=== PATIENT | male | born 1940 | race Caucasian/White ===

== ENCOUNTER → 2018-01-15 | Outpatient (CLI) | payer MEDICARE, OTHER | LOC: M WUC 13:05 | DX: J20.9 Acute bronchitis, unspecified (principal) | CPT/HCPCS: 71046 ==

== ENCOUNTER 2018-01-29 05:08 | Emergency (ER) | payer MEDICARE, OTHER ==
[2018-01-29 05:33] LABS: KETONE, URINE AUTO RFX NEGATIVE (NEGATIVE); LEUKOCYTE ESTERASE UR AUTO RFX NEGATIVE (NEGATIVE); MUCUS, URINE RFX SMALL (NEGATIVE); NITRITE, URINE AUTO RFX NEGATIVE (NEGATIVE); RBC, URINE AUTO RFX 4 /HPF (0-3); SPECIFIC GRAVITY UR AUTO RFX 1.013 (1.002-1.035); SQUAM EPITHELIAL CELL UR AURFX 0 /HPF (0-6); WBC, URINE AUTO RFX 1 /HPF (0-3)
[2018-01-29 06:23] LABS: BASO # 0.1 10^3/uL (0.0-0.2); BASO % 0.4 % (0.0-1.0); EOS # 0.1 10^3/uL (0.0-0.50); EOS % 1.1 % (0.0-3.0); HEMATOCRIT 40.7 % (42.0-52.0); HEMOGLOBIN 13.8 g/dl (13.5-17.5); IMMATURE GRANULOCYTE % 0.5 % (0-3.0); LYMPH # 2.3 10^3/uL (1.5-4.5); MEAN CORPUSCULAR HEMOGLOBIN 31.7 pg (27.0-33.0); MEAN CORPUSCULAR HGB CONC 33.9 g/dl (32.0-36.5); MEAN CORPUSCULAR VOLUME 93.3 fl (80.0-96.0); MONO # 1.2 10^3/uL (0.0-0.8); MONO % 8.9 % (0.0-5.0); NEUTROPHILS # 9.2 10^3/uL (1.8-7.7); NEUTROPHILS % 71.1 % (36.0-66.0); PLATELET COUNT, AUTOMATED 288 10^3/uL (150-450); RED BLOOD COUNT 4.36 10^6/uL (4.30-6.10); RED CELL DISTRIBUTION WIDTH 12.8 % (11.5-14.5)
[2018-01-29] MEDS: KETOROLAC 30 MG/ML VIAL (J1885) IV (06:24)
[2018-01-29 06:35] LABS: ANION GAP 9 MEQ/L (8-16); BLOOD UREA NITROGEN 15 MG/DL (7-18); CALCIUM LEVEL 8.2 MG/DL (8.8-10.2); CARBON DIOXIDE LEVEL 27 MEQ/L (21-32); CHLORIDE LEVEL 107 MEQ/L (98-107); CREATININE FOR GFR 0.97 MG/DL (0.70-1.30); GLOMERULAR FILTRATION RATE > 60.0 (>42); GLUCOSE, FASTING 99 MG/DL (70-100); POTASSIUM SERUM 3.9 MEQ/L (3.5-5.1); SODIUM LEVEL 143 MEQ/L (136-145)
== END 2018-01-29 08:48 | disposition home or self-care (01) ==
LOC: M ED 05:08
DX: K57.32 Diverticulitis of large intestine without perforation or abscess without bleeding (principal); K21.9 Gastro-esophageal reflux disease without esophagitis; K44.9 Diaphragmatic hernia without obstruction or gangrene; Z87.442 Personal history of urinary calculi; Z87.891 Personal history of nicotine dependence; Z79.899 Other long term (current) drug therapy
CPT/HCPCS: J1885

== ENCOUNTER → 2019-12-29 | Outpatient (CLI) | payer MEDICARE, OTHER ==
[~2019-12-29] MED LIST: CHOL4POW4 PO; CIPR-249 PO; DITR5TAB PO; FINA5TAB2 PO; FLAG500T PO; FLOM0.4C39 PO; NORC1TAB7 PO; PRED5TA PO; TAMS0.4C2 PO; TYLE650T35 PO; TYLETAB14 PO
== END ==
LOC: M LABSMTC 13:57
PROVIDERS: ATTEND Family Medicine
DX: Z03.818 Encounter for observation for suspected exposure to other biological agents ruled out (principal)

== ENCOUNTER 2020-04-09 05:33 | Emergency (ER) | payer MEDICARE, OTHER ==
[~2020-04-09] VITALS: Ht 172.7 cm; Wt 102.6 kg
[~2020-04-09 05:33] MED LIST changes: +ACET650T61 PO; -TYLE650T35 PO
[2020-04-09 07:00] LABS: ALBUMIN 3.9 GM/DL (3.2-5.2); ALT/SGPT 26 U/L (12-78); BILIRUBIN,DIRECT 0.2 MG/DL (0.0-0.2); BLOOD UREA NITROGEN 13 MG/DL (7-18); CARBON DIOXIDE LEVEL 26 MEQ/L (21-32); CHLORIDE LEVEL 107 MEQ/L (98-107); CREATININE FOR GFR 1.04 MG/DL (0.70-1.30); GLOMERULAR FILTRATION RATE > 60.0 (>42); GLUCOSE, FASTING 118 MG/DL (70-100); LIPASE 90 U/L (73-393); SODIUM LEVEL 140 MEQ/L (136-145); TOTAL PROTEIN 7.7 GM/DL (6.4-8.2)
[2020-04-09 07:08] LABS: BASO % 0.4 % (0.0-1.0); EOS # 0.1 10^3/uL (0.0-0.5); EOS % 1.3 % (0.0-3.0); HEMATOCRIT 42.8 % (42.0-52.0); HEMOGLOBIN 14.3 g/dl (13.5-17.5); LYMPH # 1.9 10^3/uL (1.5-5.0); MEAN CORPUSCULAR HEMOGLOBIN 31.3 pg (27.0-33.0); MEAN CORPUSCULAR HGB CONC 33.4 g/dl (32.0-36.5); MEAN CORPUSCULAR VOLUME 93.7 fl (80.0-96.0); MONO # 0.9 10^3/uL (0.0-0.8); NEUTROPHILS # 7.1 10^3/uL (1.5-8.5); PLATELET COUNT, AUTOMATED 284 10^3/uL (150-450); RED BLOOD COUNT 4.57 10^6/uL (4.30-6.10); WHITE BLOOD COUNT 10.2 10^3/uL (4.0-10.0)
--- NOTE | 2020-04-09 07:26 | REPVR ---
PROCEDURE INFORMATION: Exam: CT Abdomen And Pelvis Without Contrast Exam date and time: 04/09/2020 6:28 AM Age: 80 years old Clinical indication: Abdominal pain; Flank; Right; Additional info: R flank and suprapubic pain, distended abdomen TECHNIQUE: Imaging protocol: Computed tomography of the abdomen and pelvis without contrast. Radiation optimization: All CT scans at this facility use at least one of these dose optimization techniques: automated exposure control; mA and/or kV adjustment per patient size (includes targeted exams where dose is matched to clinical indication); or iterative reconstruction. COMPARISON: CT ABD PELVIS W/O CONTRAST 01/29/2018 6:24 AM FINDINGS: Detailed evaluation of the abdominal and pelvic viscera is somewhat limited in the absence of intravenous contrast. Lungs: Multiple nodules in the right lung base, contiguous with the diaphragm and pleura, including a 1.5 cm subpleural right lower lobe nodule, which was not visualized on the prior study. For patients at low risk (minimal or absent history of smoking and of other known risk factors), recommend CT Chest at 3-6 months, then consider CT Chest at 18-24 months. For patients at high risk (history of smoking or of other known risk factors), recommend CT Chest at 3-6 months, then CT Chest at 18-24 months. Mac[place] H, Fleischner Society, 2017. Heart: Pericardial calcification. Hiatal hernia. Liver: Fatty infiltration of the liver. Gallbladder and bile ducts: Status post cholecystectomy. Pancreas: No pancreatic mass or ductal dilatation. Spleen: No splenomegaly. Adrenals: Unremarkable adrenals. Kidneys and ureters: Lobulated morphology of the kidneys and bilateral renal cysts, including a 6.4 cm exophytic cyst arising from the lower pole of the left kidney, which previously measured 6 cm. Subcentimeter nonobstructing left renal calculi, the largest measuring 5 mm. Stomach and bowel: Small bowel dilatation without a transition zone. Colonic dilatation with prominent stool and diverticula. Sigmoid colon wall thickening and infiltration of pericolonic fat, consistent with diverticulitis in the appropriate clinical setting. Note evaluation is somewhat limited by beam hardening artifact in association with right hip arthroplasty. Appendix: Appendix not visualized. Intraperitoneal space: Small quantity of high attenuation free fluid in the pelvis. Vasculature: Vascular calcification. Normal caliber of the abdominal aorta. Lymph nodes: Subcentimeter lymph nodes. Bladder: Partial obscuration of the bladder by beam hardening artifact in association with right hip arthroplasty. Reproductive: Prostate calcification. Bones/joints: Right hip arthroplasty. Schmorl's nodes. Degenerative change and disc bulging. Coarsening of bony trabecula in the pelvis again demonstrated. Soft tissues: Laxity of the anterior abdominal wall musculature in the midline. Additional fat containing umbilical hernia. IMPRESSION: 1. Sigmoid colon wall thickening and infiltration of pericolonic fat, consistent with diverticulitis in the appropriate clinical setting. Note evaluation is somewhat limited by beam hardening artifact in association with right hip arthroplasty. 2. Small quantity of high attenuation free fluid in the pelvis. 3. Lobulated morphology of the kidneys and bilateral renal cysts. Subcentimeter nonobstructing left renal calculi, the largest measuring 5 mm. 4. Additional findings as described above. Electronically signed by: Ayan Mirza On 04/09/2020 07:26:53 AM
[2020-04-09] MEDS ORDERED: KETOROLAC 30 MG/ML 1ML VIAL IV ONE (07:45)
[2020-04-09 09:02] LABS: CK-MB VALUE MASS 2.7 NG/ML (<3.6); CPK CREATINE PHOSPHOKINASE 308 U/L (39-308); MB/CK RELATIVE INDEX 0.88 (< OR =4); TROPONIN I < 0.02 NG/ML (< 0.10)
[2020-04-09] MEDS ORDERED: AUGM875T28 PO (09:20)
[2020-04-09 09:22] VITALS: BP 160/90
--- NOTE | 2020-04-10 14:57 | ED PDOC ---
Post-Departure Follow-Up alexandra crouch faxed formal report of ct ab/p for fu Arelis Vargas MD Apr 10, 2020 14:57
--- NOTE | 2020-04-20 21:37 | ECGEPIP ---
[facility] - ED Test Date: 2020-04-09 Pat Name: ASH GONZALEZ Department: Room: - Gender: Male House Wirer: wanda : 1940 Requested By: FERMIN Hood PA-C Order Number: [id number] Reading MD: Mir Orourke Measurements Intervals [place] Rate: 89 P: 54 NC: 180 QRS: 0 QRSD: 93 T: 89 QT: 366 QTc: 446 Interpretive Statements SINUS RHYTHM NONSPECIFIC T-WAVE ABNORMALITY NO PREVIOUS SEE DOWNTIME SCANNED REPORT
== END 2020-04-09 09:31 | disposition home or self-care (01) ==
LOC: M ED 05:33
DX: K57.32 Diverticulitis of large intestine without perforation or abscess without bleeding (principal); N20.0 Calculus of kidney; R03.0 Elevated blood-pressure reading, without diagnosis of hypertension; N28.1 Cyst of kidney, acquired; K21.9 Gastro-esophageal reflux disease without esophagitis; N40.0 Benign prostatic hyperplasia without lower urinary tract symptoms; R13.10 Dysphagia, unspecified; Z87.19 Personal history of other diseases of the digestive system; Z87.442 Personal history of urinary calculi; Z79.899 Other long term (current) drug therapy
CPT/HCPCS: 74176; 80048; 80076; 81001; 82550; 82553; 83690; 84484; 85025; 93005; 96374; 99284; J1885

== ENCOUNTER → 2020-04-10 | Outpatient (CLI) | payer MEDICARE, OTHER ==
[~2020-04-10] MED LIST changes: +AUGM875T28 PO
== END ==
LOC: M LABSMTC 09:40
PROVIDERS: ATTEND Anesthesiology
DX: Z01.812 Encounter for preprocedural laboratory examination (principal); Z20.828 Contact with and (suspected) exposure to other viral communicable diseases
CPT/HCPCS: C9803; U0003

== ENCOUNTER 2020-04-15 11:01 | Day surgery (SDC) | payer MEDICARE, OTHER ==
[~2020-04-15] VITALS: Ht 172.7 cm; Wt 101.2 kg
[~2020-04-15 11:01] MED LIST changes: +NS 1,000 ML IV ONE
[2020-04-15] MEDS ORDERED: fentaNYL 100 MCG/2 ML INJECTION (J3010) As Ordered ONE (12:07)
[2020-04-15] MEDS ORDERED: LIDOCAINE 2% 100MG/5ML SDV (FOR ANES.) As Ordered ONE (12:07)
[2020-04-15] MEDS ORDERED: propofoL 500 MG/50 ML VIAL As Ordered ONE (12:07)
--- NOTE | 2020-04-15 12:23 | ROOR ---
Patient Name: Coleman Okeefe Procedure Date: 04/15/2020 12:04 PM Date of : 1940 Age: 80 Room: [facility] Gender: Male Note Status: Finalized Procedure: Upper GI endoscopy Indications: Dysphagia Providers: Jose Ramon Covington Jr, MD Referring MD: Jose Ramon Covington Jr, MD Requesting Provider: Medicines: Propofol per Anesthesia Complications: No immediate complications. Procedure: Pre-Anesthesia Assessment: - Prior to the procedure, a History and Physical was performed, and patient medications and allergies were reviewed. The patient is competent. The risks and benefits of the procedure and the sedation options and risks were discussed with the patient. All questions were answered and informed consent was obtained. Patient identification and proposed procedure were verified by the physician and the nurse in the pre-procedure area and in the procedure room. Mental Status Examination: alert and oriented. Airway Examination: normal oropharyngeal airway and neck mobility. Respiratory Examination: clear to auscultation. CV Examination: normal. ASA Grade Assessment: II - A patient with mild systemic disease. After reviewing the risks and benefits, the patient was deemed in satisfactory condition to undergo the procedure. The anesthesia plan was to use moderate sedation / analgesia (conscious sedation). Immediately prior to administration of medications, the patient was re-assessed for adequacy to receive sedatives. The heart rate, respiratory rate, oxygen saturations, blood pressure, adequacy of pulmonary ventilation, and response to care were monitored throughout the procedure. The physical status of the patient was re-assessed after the procedure. The Endoscope was introduced through the mouth, and advanced to the second part of duodenum. The upper GI endoscopy was accomplished without difficulty. The patient tolerated the procedure well. Findings: The upper third of the esophagus, middle third of the esophagus and lower third of the esophagus were normal. LA Grade A (one or more mucosal breaks less than 5 mm, not extending between tops of 2 mucosal folds) esophagitis was found at the gastroesophageal junction. Biopsies were taken with a cold forceps for histology. The gastric antrum, prepyloric region of the stomach and pylorus were normal. Scattered moderate inflammation characterized by congestion (edema), erythema, friability and granularity was found in the cardia, in the gastric fundus and in the gastric body. Biopsies were taken with a cold forceps for histology. The duodenal bulb, first portion of the duodenum and second portion of the duodenum were normal. A small hiatal hernia was present. Impression: - Normal upper third of esophagus, middle third of esophagus and lower third of esophagus. - LA Grade A reflux esophagitis. Biopsied. - Normal antrum, prepyloric region of the stomach and pylorus. - Gastritis. Biopsied. - Normal duodenal bulb, first portion of the duodenum and second portion of the duodenum. Recommendation: - Discharge patient to home (ambulatory). - Return to my office at appointment to be scheduled. Jose Ramon Covington MD Jose Ramon Covington Jr, MD 04/15/2020 12:22:49 PM Electronically signed by Jose Ramon Covington Jr, MD Number of Addenda: 0 Note Initiated On: 04/15/2020 12:04 PM Estimated Blood Loss: Estimated blood loss: none.
[2020-04-15 13:07] VITALS: BP 180/90
== END 2020-04-15 13:11 | disposition home or self-care (01) ==
LOC: M OPP 11:01
PROVIDERS: ATTEND Surgery
DX: K21.0 Gastro-esophageal reflux disease with esophagitis (principal); K29.70 Gastritis, unspecified, without bleeding; R13.10 Dysphagia, unspecified; K44.9 Diaphragmatic hernia without obstruction or gangrene; Z79.899 Other long term (current) drug therapy
CPT/HCPCS: 43239; 88305; J3010

== ENCOUNTER → 2020-10-29 | Outpatient (CLI) | payer MEDICARE, OTHER ==
[~2020-10-29] MED LIST changes: -NS 1,000 ML IV ONE
--- NOTE | 2020-10-29 12:26 | REP ---
INDICATION: R91.8 ABN FINDINGS OF LUNG FIELD. COMPARISON: Comparison chest CT studies are dated July 08, 2020, April 09, 2020, and October 28, 2015. CT images of the lung bases are reviewed from January 29, 2018 as well.. TECHNIQUE: Helical scanning is acquired. 3 mm axial images are generated. Coronal and sagittal MPR and coronal MIP images are generated. FINDINGS: Preliminary digital caustic room attendant radiograph demonstrates linear fibrosis in the right base and clips in right upper quadrant of the abdomen. 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 The recently identified 16 mm noncalcified pulmonary nodule in the right lower lobe is again seen unchanged from the July 08, 2020 and April 09, 2020 prior studies. There was some linear fibrosis in this location in 2018 but the nodular change is new since that prior study. It was not evident on 2015. There is calcific pleural plaquing over the right hemidiaphragm which is unchanged. No new pulmonary nodule is seen. No new infiltrate or mass. Small sliding hiatal hernia is noted. There are pericardial calcifications noted unchanged. No pericardial effusion is seen. No hilar or mediastinal mass or adenopathy is observed. No adrenal lesion is seen. There are cysts in the upper pole of the left kidney. These are unchanged. No bony destructive lesion is appreciated. IMPRESSION: 16 mm noncalcified pulmonary nodule in the right lower lobe posteriorly unchanged from July 08, 2020 and April 09, 2020. Six-month follow-up study suggested. Findings otherwise stable. <Electronically signed by Kenney Ding > 10/29/20 [id number]
== END ==
LOC: M RAD 08:51
PROVIDERS: ATTEND Internal Medicine Pulmonary Disease
DX: R91.1 Solitary pulmonary nodule (principal); R91.8 Other nonspecific abnormal finding of lung field

== ENCOUNTER → 2021-05-22 | Outpatient (REF) | payer MEDICARE, OTHER | LOC: M WUC 18:41 | PROVIDERS: ATTEND Physician Assistant Medical | DX: J02.9 Acute pharyngitis, unspecified (principal) ==

== ENCOUNTER → 2022-03-17 | Outpatient (CLI) | payer MEDICARE, OTHER ==
[~2022-03-17] MED LIST changes: +CHOL4POW26 PO; -CHOL4POW4 PO; +PROHANCE 279.3MG/ML 15ML VIAL ONE; +PROHANCE 279.3MG/ML 5ML VIAL ONE
== END ==
LOC: M PLAIMG 09:49
PROVIDERS: ATTEND Specialist
DX: G50.0 Trigeminal neuralgia (principal); I63.81 Other cerebral infarction due to occlusion or stenosis of small artery
CPT/HCPCS: 70553; A9576

== ENCOUNTER 2023-01-24 10:39 | Emergency (ER) | payer MEDICARE, OTHER ==
[~2023-01-24] VITALS: Ht 172.7 cm; Wt 103.6 kg
[2023-01-24 10:39] VITALS: TEMP 97.7
[~2023-01-24 10:39] MED LIST changes: -PROHANCE 279.3MG/ML 15ML VIAL ONE; -PROHANCE 279.3MG/ML 5ML VIAL ONE
[2023-01-24] MEDS ORDERED: METO1TAB32 (10:48)
[2023-01-24 11:39] LABS: BASO # 0.1 10^3/uL (0.0-0.2); BASO % 0.9 % (0.0-1.0); EOS # 0.2 10^3/uL (0.0-0.5); EOS % 2.9 % (0.0-3.0); HEMATOCRIT 41.7 % (42.0-52.0); HEMOGLOBIN 13.6 g/dl (13.5-17.5); LYMPH # 1.7 10^3/uL (1.5-5.0); LYMPH % 29.4 % (24.0-44.0); MEAN CORPUSCULAR HEMOGLOBIN 31.3 pg (27.0-33.0); MEAN CORPUSCULAR HGB CONC 32.6 g/dl (32.0-36.5); MEAN CORPUSCULAR VOLUME 96.1 fl (80.0-96.0); MONO # 0.4 10^3/uL (0.0-0.8); MONO % 7.6 % (2.0-8.0); NEUTROPHILS # 3.4 10^3/uL (1.5-8.5); PLATELET COUNT, AUTOMATED 283 10^3/uL (150-450); RED BLOOD COUNT 4.34 10^6/uL (4.30-6.10); WHITE BLOOD COUNT 5.8 10^3/uL (4.0-10.0)
[2023-01-24 12:05] LABS: BLOOD UREA NITROGEN 11 MG/DL (9-23); CALCIUM LEVEL 8.5 MG/DL (8.3-10.6); CARBON DIOXIDE LEVEL 27 MMOL/L (20-31); CHLORIDE LEVEL 107 MMOL/L (98-107); CREATININE FOR GFR 0.84 MG/DL (0.70-1.30); GLOMERULAR FILTRATION RATE > 60.0 (>35); GLUCOSE, FASTING 104 MG/DL (74-106); POTASSIUM SERUM 4.2 MMOL/L (3.5-5.1); SODIUM LEVEL 140 MMOL/L (136-145)
[2023-01-24 12:13] LABS: INR 0.98; PROTHROMBIN TIME 13.2 SECONDS (12.5-14.5)
[2023-01-24 12:36] LABS: CPK CREATINE PHOSPHOKINASE 143 U/L (46-171); MB/CK RELATIVE INDEX 0.69 (< OR =4); RSV AMPLIFICATION NEGATIVE (NEGATIVE)
[2023-01-24] MEDS ORDERED: METOPROLOL TART 25 MG TABLET PO ONE (12:50)
[2023-01-24] MEDS ORDERED: ISOVUE-370 76% 100ML VIAL As Ordered ONE (12:52)
[2023-01-24 13:06] LABS: CK-MB VALUE MASS 1.3 NG/ML (<3.6)
[2023-01-24 13:12] LABS: MB/CK RELATIVE INDEX 0.92 (< OR =4)
[2023-01-24 13:42] VITALS: BP 189/105
[2023-01-24 14:54] VITALS: O2SAT 96
[2023-01-24 15:09] VITALS: O2SAT 95
[2023-01-24 15:58] VITALS: BP 160/90
== END 2023-01-24 16:51 | disposition home or self-care (01) ==
LOC: M ED 10:39
DX: R06.02 Shortness of breath (principal); I10 Essential (primary) hypertension; G50.0 Trigeminal neuralgia; Z79.899 Other long term (current) drug therapy
CPT/HCPCS: 71045; 71275; 80048; 82550; 82553; 83880; 84484; 85025; 85610; 87631; 93005; 93041; 94760; 99285; Q9967

== ENCOUNTER 2024-01-12 13:06 | Inpatient (IN) | payer MEDICARE, OTHER ==
[~2024-01-12] VITALS: Ht 172.7 cm; Wt 104.8 kg
[~2024-01-12 13:06] MED LIST changes: +METO1TAB32 PO
[2024-01-12] MEDS: NS 500 ML IV ONE (15:15)
[2024-01-12 15:57] LABS: BASO % 0.4 % (0.0-1.0); EOS # 0.2 10^3/uL (0.0-0.5); EOS % 2.2 % (0.0-3.0); HEMATOCRIT 45.2 % (42.0-52.0); LYMPH % 24.3 % (24.0-44.0); MEAN CORPUSCULAR HEMOGLOBIN 31.9 pg (27.0-33.0); MEAN CORPUSCULAR HGB CONC 33.2 g/dl (32.0-36.5); MEAN CORPUSCULAR VOLUME 96.2 fl (80.0-96.0); MONO # 0.8 10^3/uL (0.0-0.8); MONO % 9.7 % (2.0-8.0); NEUTROPHILS # 5.1 10^3/uL (1.5-8.5); PLATELET COUNT, AUTOMATED 295 10^3/uL (150-450)
[2024-01-12 16:14] LABS: LIPASE 25 U/L (12-53)
[2024-01-12 16:15] LABS: CPK CREATINE PHOSPHOKINASE 126 U/L (46-171); MB/CK RELATIVE INDEX 1.58 (< OR =4)
[2024-01-12 16:16] LABS: ALBUMIN 3.9 G/DL (3.2-5.2); ALKALINE PHOSPHATASE 79 U/L (46-116); ALT/SGPT 29 U/L (7.0-40); AST/SGOT 22 U/L (<34); BILIRUBIN,DIRECT 0.6 MG/DL (<0.4); BLOOD UREA NITROGEN 20 MG/DL (9-23); CALCIUM LEVEL 9.4 MG/DL (8.3-10.6); CARBON DIOXIDE LEVEL 29 MMOL/L (20-31); CHLORIDE LEVEL 104 MMOL/L (98-107); CREATININE FOR GFR 1.21 MG/DL (0.70-1.30); GLOMERULAR FILTRATION RATE > 60.0 (>35); GLUCOSE, FASTING 98 MG/DL (74-106); SODIUM LEVEL 140 MMOL/L (136-145); TOTAL PROTEIN 7.6 G/DL (5.7-8.2)
[2024-01-12] MEDS ORDERED: ISOVUE-370 76% 100ML VIAL As Ordered ONE (16:22)
[2024-01-12] MEDS: NS 1,000 ML IV ONE (16:40)
[2024-01-12 17:33] LABS: CK-MB VALUE MASS 1.8 NG/ML (<3.6)
[2024-01-12 17:34] LABS: MB/CK RELATIVE INDEX 1.56 (< OR =4)
[2024-01-12 18:26] LABS: MB/CK RELATIVE INDEX 1.63 (< OR =4)
[2024-01-12] MEDS ORDERED: HOME MED LIST COMPLETE! XX SCH (21:35)
[2024-01-13] MEDS ORDERED: MOM 30ML SUSPENSION UDC PO PRN (00:10)
[2024-01-13] MEDS ORDERED: ACETAMINOPHEN TAB 650MG DOSE (2X325MG) PO PRN (00:10)
[2024-01-13] MEDS ORDERED: MAALOX 30 ML SUSP *UDC PO PRN (00:10)
[2024-01-13] MEDS: METOPROLOL TART 12.5 MG PER 1/2 TAB PO SCH (01:15)
[2024-01-13] MEDS: LR 1,000 ML IV SCH (01:15)
[2024-01-13] MEDS: CIPROFLOXACIN 400 MG in IV 1 EA IV SCH (01:15)
[2024-01-13 02:28] VITALS: BP 133/82; TEMP 97.9; O2SAT 95
[2024-01-13 03:57] VITALS: BP 146/84; TEMP 98.1; O2SAT 92
[2024-01-13] MEDS: DOCUSATE SODIUM 100MG CAPSULE PO SCH (08:36)
[2024-01-13] MEDS: ENOXAPARIN 40MG/0.4ML SYRINGE (J1650 PER 10MG) SC SCH (09:17)
[2024-01-13 12:00] VITALS: BP 142/90; TEMP 98.2; O2SAT 93
[2024-01-14 05:33] VITALS: BP 172/101; TEMP 97.9; O2SAT 95
[2024-01-14 06:11] LABS: BASO % 0.4 % (0.0-1.0); EOS # 0.1 10^3/uL (0.0-0.5); EOS % 2.9 % (0.0-3.0); HEMATOCRIT 37.5 % (42.0-52.0); LYMPH # 1.5 10^3/uL (1.5-5.0); LYMPH % 30.8 % (24.0-44.0); MEAN CORPUSCULAR HEMOGLOBIN 31.7 pg (27.0-33.0); MEAN CORPUSCULAR HGB CONC 33.6 g/dl (32.0-36.5); MEAN CORPUSCULAR VOLUME 94.5 fl (80.0-96.0); MONO # 0.5 10^3/uL (0.0-0.8); MONO % 10.8 % (2.0-8.0); NEUTROPHILS # 2.6 10^3/uL (1.5-8.5); NEUTROPHILS % 54.9 % (36.0-66.0); PLATELET COUNT, AUTOMATED 223 10^3/uL (150-450); RED BLOOD COUNT 3.97 10^6/uL (4.30-6.10); WHITE BLOOD COUNT 4.8 10^3/uL (4.0-10.0)
[2024-01-14 06:18] LABS: HEMOGLOBIN 12.6 g/dl (13.5-17.5)
[2024-01-14 06:47] LABS: PROCALCITONIN 0.12 ng/ml
[2024-01-14 06:50] LABS: ALBUMIN 3.1 G/DL (3.2-5.2); ALKALINE PHOSPHATASE 60 U/L (46-116); ALT/SGPT 18 U/L (7.0-40); AST/SGOT 15 U/L (<34); BILIRUBIN,TOTAL 1.2 MG/DL (0.3-1.2); BLOOD UREA NITROGEN 7 MG/DL (9-23); CALCIUM LEVEL 8.6 MG/DL (8.3-10.6); CARBON DIOXIDE LEVEL 28 MMOL/L (20-31); CHLORIDE LEVEL 108 MMOL/L (98-107); CREATININE FOR GFR 0.81 MG/DL (0.70-1.30); GLOMERULAR FILTRATION RATE > 60.0 (>35); GLUCOSE, FASTING 99 MG/DL (74-106); MAGNESIUM LEVEL 1.7 MG/DL (1.8-2.4); POTASSIUM SERUM 3.7 MMOL/L (3.5-5.1); SODIUM LEVEL 141 MMOL/L (136-145); TOTAL PROTEIN 5.9 G/DL (5.7-8.2)
[2024-01-14 07:14] VITALS: BP 171/95; O2SAT 93
[2024-01-14] MEDS: MAG SULF 1GM/100ML (MAG RUN) 1 GM in IV 1 EA IV SCH (08:06)
[2024-01-14 08:07] VITALS: BP 171/95
[2024-01-14] MEDS: METOPROLOL TART 25 MG TABLET PO SCH (08:07)
[2024-01-14] MEDS ORDERED: MAG SULF 1GM/100ML (MAG RUN) 1 GM in IV 1 EA IV SCH (11:20)
[2024-01-14] MEDS ORDERED: CIPR-249 PO (11:27)
[2024-01-14] MEDS ORDERED: METO50TA7 PO (11:27)
[2024-01-14 12:23] VITALS: BP 150/77; TEMP 97.9; O2SAT 94
== END 2024-01-14 14:39 | disposition home or self-care (01) | DRG 373 ==
LOC: M ED 13:06 → M ED INP 22:42 → M MSPAV 01-13 02:28
PROVIDERS: ADMIT Internal Medicine; ATTEND Hospitalist
DX: A04.72 Enterocolitis due to Clostridium difficile, not specified as recurrent (principal); I10 Essential (primary) hypertension; K21.00 Gastro-esophageal reflux disease with esophagitis, without bleeding; N40.0 Benign prostatic hyperplasia without lower urinary tract symptoms; K44.9 Diaphragmatic hernia without obstruction or gangrene; Z90.49 Acquired absence of other specified parts of digestive tract; Z87.891 Personal history of nicotine dependence; Z79.899 Other long term (current) drug therapy

== ENCOUNTER → 2024-01-31 | Outpatient (REF) | payer MEDICARE, OTHER ==
[~2024-01-31] MED LIST changes: +METO50TA7 PO
[2024-01-31 18:49] LABS: BASO # 0.1 10^3/uL (0.0-0.2); BASO % 0.7 % (0.0-1.0); EOS # 0.1 10^3/uL (0.0-0.5); EOS % 1.9 % (0.0-3.0); HEMATOCRIT 42.1 % (42.0-52.0); HEMOGLOBIN 13.8 g/dl (13.5-17.5); LYMPH # 1.9 10^3/uL (1.5-5.0); MEAN CORPUSCULAR HEMOGLOBIN 31.2 pg (27.0-33.0); MEAN CORPUSCULAR HGB CONC 32.8 g/dl (32.0-36.5); MONO # 0.5 10^3/uL (0.0-0.8); MONO % 7.9 % (2.0-8.0); NEUTROPHILS # 4.3 10^3/uL (1.5-8.5); NEUTROPHILS % 62.2 % (36.0-66.0); PLATELET COUNT, AUTOMATED 299 10^3/uL (150-450); RED BLOOD COUNT 4.43 10^6/uL (4.30-6.10); WHITE BLOOD COUNT 6.9 10^3/uL (4.0-10.0)
[2024-01-31 19:09] LABS: BLOOD UREA NITROGEN 12 MG/DL (9-23); CALCIUM LEVEL 9.1 MG/DL (8.3-10.6); CARBON DIOXIDE LEVEL 28 MMOL/L (20-31); CHLORIDE LEVEL 108 MMOL/L (98-107); CREATININE FOR GFR 0.85 MG/DL (0.70-1.30); GLOMERULAR FILTRATION RATE > 60.0 (>35); GLUCOSE, FASTING 99 MG/DL (74-106); POTASSIUM SERUM 4.2 MMOL/L (3.5-5.1); SODIUM LEVEL 140 MMOL/L (136-145)
== END ==
LOC: M LAB REF 17:42
PROVIDERS: ATTEND Nurse Practitioner Family
DX: R19.7 Diarrhea, unspecified (principal)

== ENCOUNTER 2024-02-10 14:33 | Emergency (ER) | payer MEDICARE, OTHER ==
[~2024-02-10] VITALS: Ht 172.7 cm; Wt 98.5 kg
[2024-02-10] MEDS: IBUPROFEN 400MG TAB PO ONE (16:40)
[2024-02-10] MEDS ORDERED: IBUP-1114 PO (16:43)
[2024-02-10 16:46] VITALS: BP 130/63; TEMP 97.5; O2SAT 94
== END 2024-02-10 16:51 | disposition home or self-care (01) ==
LOC: M ED 14:33
DX: S40.012A Contusion of left shoulder, initial encounter (principal); S70.02XA Contusion of left hip, initial encounter; W19.XXXA Unspecified fall, initial encounter; Y92.830 Public park as the place of occurrence of the external cause; Y93.89 Activity, other specified; Y99.9 Unspecified external cause status; M70.62 Trochanteric bursitis, left hip; Z79.899 Other long term (current) drug therapy

== ENCOUNTER → 2024-08-14 | Outpatient (REF) | payer MEDICARE, OTHER ==
[~2024-08-14] MED LIST changes: +IBUP-1114 PO
[2024-08-14 18:41] LABS: BLOOD UREA NITROGEN 18 MG/DL (9-23); CALCIUM LEVEL 9.3 MG/DL (8.3-10.6); CARBON DIOXIDE LEVEL 29 MMOL/L (20-31); CHLORIDE LEVEL 103 MMOL/L (98-107); CHOLESTEROL LEVEL 209 MG/DL (<200); CHOLESTEROL RISK RATIO 4.92 (<5); GLOMERULAR FILTRATION RATE > 60.0 (>35); GLUCOSE, FASTING 99 MG/DL (74-106); HDL CHOLESTEROL 42.4 MG/DL (>40); LDL CHOLESTEROL 127.2 MG/DL (<100); NON-HDL-C 166.6 MG/DL; PSA SCREENING 0.25 NG/ML (< 4.00); SODIUM LEVEL 140 MMOL/L (136-145); TRIGLYCERIDES LEVEL 197 MG/DL (<150)
== END ==
LOC: M LAB REF 16:26
PROVIDERS: ATTEND Physician Assistant
DX: I10 Essential (primary) hypertension (principal); N40.0 Benign prostatic hyperplasia without lower urinary tract symptoms; Z12.5 Encounter for screening for malignant neoplasm of prostate
CPT/HCPCS: 80048; 80061; G0103

== ENCOUNTER → 2025-07-28 | Outpatient (REF) | payer MEDICARE, OTHER ==
[~2025-07-28] MED LIST changes: -FLOM0.4C39 PO; +TAMS-18 PO
[2025-07-28 13:44] LABS: APPEARANCE, URINE CLEAR (CLEAR); BACTERIA, URINE AUTO NEGATIVE (NEGATIVE); BILIRUBIN, URINE AUTO NEGATIVE (NEGATIVE); BLOOD, URINE BLOOD NEGATIVE (NEGATIVE); GLUCOSE, URINE (UA) AUTO NEGATIVE (NEGATIVE); KETONE, URINE AUTO NEGATIVE (NEGATIVE); LEUKOCYTE ESTERASE, URINE AUTO NEGATIVE (NEGATIVE); NITRITE, URINE AUTO NEGATIVE (NEGATIVE); PROTEIN, URINE AUTO NEGATIVE (NEGATIVE); RBC, URINE AUTO 2 /HPF (0-3); SPECIFIC GRAVITY URINE AUTO 1.023 (1.002-1.035); SQUAMOUS EPITHELIAL CELL UR AU 0 /HPF (0-6); UROBILINOGEN, URINE AUTO 0.2 mg/dL (0.0-2.0); WBC, URINE AUTO 1 /HPF (0-3)
== END ==
LOC: M SMT 13:05
PROVIDERS: ATTEND Nurse Practitioner Family
DX: R32 Unspecified urinary incontinence (principal)